=== PATIENT | female | born 1970 | race Caucasian/White ===

== ENCOUNTER → 2018-01-18 | Outpatient (CLI) | payer BC ==
[~2018-01-18] MED LIST: ACET-1966 PO; AMOX500T10 PO; CLAR-1 PO; NAPR220C12 PO; ONDA4TAB PO; PANT40TA65 PO; VENL75CA58 PO
--- NOTE | 2018-01-18 17:42 | RADIOLOGY IMAGING REPORT ---
FACILITY: [facility] PATIENT NAME: Leatha De La O : 1970 MR: [id number] V: [id number] EXAM DATE: ORDERING PHYSICIAN: STACY DE LA O TECHNOLOGIST: Location: [facility] [place] Patient: Leatha De La O : 1970 Visit/Account:[id number] Date of Sevice: 01/18/2018 EXAMINATION: CT of the Paranasal Sinuses HISTORY: Chronic sinus symptoms TECHNIQUE: CT was performed through the paranasal sinuses without intravenous contrast administratio n. Coronal and sagittal reformatted images were generated. One of the following dose optimization techniques was utilized in the performance of this exam: autom ated exposure control; adjustment of the mA and/or kV according to patient size; or use of iterative reconstruction technique. Specific details can be referenced in the facility's radiology CT exam ope rational policy. COMPARISON: None. FINDINGS: Clear mastoid air cells and middle ear cavities. Subcentimeter mucous retention cyst in the frontal sinus. 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 Small volume secretions in the left maxillary sinus. Otherwise clear sinuses. Slight rightward nasal septum deviation. No apparent nasal cavity polyp. Nasopharyngeal lymphoid hypertrophy is favored to be reactive. No discrete mass in this area. Patent infundibula. The visible extracranial and intracranial structures are normal. Minimal bilateral temporomandibular joint degeneration. IMPRESSION: Small volume left maxillary sinus secretions. Acute sinusitis cannot be excluded. Chronic left lamina papyracea fracture deformity. Nasopharyngeal lymphoid hypertrophy is favored to be reactive. No discrete mass seen in this area. Report Dictated By: Parish Pereira MD at 01/18/2018 5:35 PM Report E-Signed By: Parish Pereira MD at 01/18/2018 5:39 PM WSN:[id number]
== END ==
LOC: CT 02:19
PROVIDERS: ATTEND Otolaryngology
DX: J32.9 Chronic sinusitis, unspecified (principal); J34.2 Deviated nasal septum; R59.0 Localized enlarged lymph nodes
CPT/HCPCS: 70486

== ENCOUNTER → 2018-04-26 | Outpatient (CLI) | payer BC ==
--- NOTE | 2018-04-26 14:02 | EKG ---
FACILITY: PATIENT NAME: YONI CHEN : [id number] MR: [id number] V: [id number] EXAM DATE: ORDERING PHYSICIAN: STACY CHEN TECHNOLOGIST: ALISSA Parks Reason : PRE-OP Blood Pressure : / mmHG Vent. Rate : 094 BPM Atrial Rate : 094 BPM P-R Int : 146 ms QRS Dur : 092 ms QT Int : 366 ms P-R-T Axes : 064 063 -24 degrees QTc Int : 457 ms Normal sinus rhythm Nonspecific T wave changes When compared with ECG of 03-MAR-2013 21:57, No significant change Confirmed by NAOMI GALINDO ([id number] on 04/27/2018 6:45:16 AM Referred By: GUSTAVO Confirmed By:NAOMI GALINDO
[2018-04-26 14:12] LABS: INR 1.06
== END ==
LOC: LAB 13:36
PROVIDERS: ATTEND Otolaryngology
DX: Z01.818 Encounter for other preprocedural examination (principal)
CPT/HCPCS: 36415; 85610; 85730; 93005